=== PATIENT | female | born 1980 | race Two or more races ===

== ENCOUNTER 2017-06-07 07:32 | Emergency (ER) | payer OTHER ==
[2017-06-07 07:55] VITALS: BMI 17.7
[2017-06-07 08:16] LABS: URINE APPEARANCE CLEAR; URINE BILIRUBIN NEGATIVE (NEGATIVE); URINE BLOOD 3+ (NEGATIVE); URINE COLOR STRAW; URINE GLUCOSE (UA) NEGATIVE (NEGATIVE); URINE KETONE NEGATIVE (NEGATIVE); URINE NITRITE NEGATIVE (NEGATIVE); URINE PROTEIN NEGATIVE (NEGATIVE); URINE UROBILINOGEN NEGATIVE mg/dL (0.2-1.0)
--- NOTE | 2017-06-07 08:17 | PDOC ---
History of Present Illness - General Chief Complaint: Urinary Problem Stated Complaint: PIANFUL URINATION Time Seen by Provider: 06/07/17 08:03 History Source: Patient Exam Limitations: No Limitations - History of Present Illness Initial Comments: This is a 37 YOF with h/o UTI 4 years ago who presents with burning on urination and lower abdominal pain for the past two days. She additionally notes small amount of blood in the urine for the past day. Her pain is 7/10 maximum and is non-radiating (no leg/back/flank/upper abdomen/chest/shoulder pain). She had the same symptoms four years ago and was diagnosed with UTI at that time, but otherwise has never had a UTI that she is aware of. She denies any fever, chills, nausea, vomiting, vaginal bleeding or discharge, headache, dizziness, chest pain, SOB, or other symptoms. She has been taking Azo for her symptoms but no other medications. Her LMP was on 05/23/17 and she denies any chance of being now. Her last pelvic exam and PAP smear was three years ago and she has a PCP with whom she has plans to follow up with for a repeat pelvic exam and PAP. She has no medication allergies. Past History - Past Medical History Allergies/Adverse Reactions: Allergies Allergy/AdvReac Type Severity Reaction Status Date / Time No Known Allergies Allergy Verified 06/07/17 07:51 Home Medications: Ambulatory Orders Cephalexin [Keflex] 500 mg PO BID #10 capsule 06/07/17 COPD: No Other medical history: DENIES. - Suicide/Smoking/Psychosocial Hx Smoking History: Never smoked Review of Systems - Review of Systems Constitutional: No: Chills, Fever, Unexplained wgt Loss HEENTM: No: Nose Congestion, Throat Pain Respiratory: No: Cough, Shortness of Breath Cardiac (ROS): No: Chest Pain, Palpitations ABD/GI: Yes: Other (lower abdominal pain). No: Constipated, Diarrhea, Nausea, Vomiting : Yes: Burning, Dysuria Musculoskeletal: No: Back Pain, Neck Pain Integumentary: No: Bruising, Rash Neurological: No: Headache, Numbness, Tingling, Weakness, Dizziness Endocrine: No: Unexplained Weight Gain, Unexplained Weight Loss *Physical Exam - Vital Signs Last Vital Signs Temp Pulse Resp BP Pulse Ox 98.2 F 70 19 122/64 100 06/07/17 07:51 06/07/17 07:51 06/07/17 07:51 06/07/17 07:51 06/07/17 07:51 - Physical Exam General Appearance: Yes: Nourished, Appropriately Dressed, Other (well appearing [place]-speaking female accompanied by her adolescent son, answers appropriately, sitting comfortably on hospital bed). No: Apparent Distress HEENT: positive: EOMI, Normal Voice, Hearing Grossly Normal. negative: Scleral Icterus (R), Scleral Icterus (L), Nasal Congestion Neck: positive: Trachea midline, Supple. negative: Tender, Rigid Respiratory/Chest: positive: Lungs Clear, Normal Breath Sounds. negative: Chest Tender, Respiratory Distress, Crackles, Rhonchi, Stridor, Wheezing Cardiovascular: positive: Regular Rhythm, Regular Rate. negative: Murmur Gastrointestinal/Abdominal: positive: Normal Bowel Sounds, Tender (mild ttp suprapubic region), Soft. negative: Organomegaly, Pulsatile Mass, Guarding Musculoskeletal: positive: Normal Inspection. negative: CVA Tenderness, Decreased Range of Motion, Vertebral Tenderness Extremity: positive: Normal Capillary Refill, Normal Inspection, Normal Range of Motion. negative: Tender, Cyanosis Integumentary: positive: Normal Color, Dry, Warm. 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 On exam VS wnl and the patient is comfortable but has mild suprapubic ttp, no CVA tenderness. DDX IBNLT UTI, urethritis, pyelonephritis, endometriosis, ovarian cyst, vaginitis, interstitial cystitis, etc. High likelihood of simple UTI as patient has no CVA ttp, no severe abdominal pain, no vaginal itching/discharge, h/o cysts, etc. Ordered is UA with cx. 06/07/17 09:35 UA results with negative nitrites, leukocyte esterase pending, but +blood. Mirco is run and results with WBCs and rare bacteria. Will treat with dose of Keflex here in the ED and Rx for Keflex course at home. Return precautions are discussed. *DC/Admit/Observation/Transfer Diagnosis at time of Disposition: UTI (urinary tract infection) Qualifiers: Urinary tract infection type: site unspecified Hematuria presence: with hematuria Qualified Code(s): N39.0 - Urinary tract infection, site not specified - Discharge Dispostion Disposition: HOME Condition at time of disposition: Stable Admit: No - Prescriptions Prescriptions: Cephalexin [Keflex] 500 mg PO BID #10 capsule - Referrals - Patient Instructions Printed Discharge Instructions: DI for Urinary Tract Infection (UTI) Additional Instructions: Null visto en la angelique emergencia por dolor de abdomen y sensacion de quemar cuando orina. Creemos que tiene wale infeccion de la orina y mandemos wale receta de antibioticos a grady farmacia. Por favor tisha todos los antibioticos siguiendo las direcciones en el paquete. Tisha Azo po solo un diana mas porque esta medicamente solamente funciona por dos gomes. Haz wale thuy con grady doctor primario , o por favor regresa a la angelique emergencia si tiene sintomas nuevas o peoras rama fiebre, dolor de espalda, o dolor que no puede controlar con Tylenol. Print Language: ARMENIAN - Post Discharge Activity
--- NOTE | 2017-06-07 08:19 | PDOC ---
Attending Attestation - HPI HPI: 06/07/17 09:26 The patient is a 37 year old female with a significant PMH of past UTI (2012) who presents to the emergency department with dysuria and suprapubic abdominal pain beginning approximately 2 days ago. The patient also reports hematuria beginning this morning. The patient denies taking antibiotics in the past for her UTI. The patient denies chest pain, shortness of breath, headache and dizziness. Denies fever, chills, nausea, vomit, diarrhea and constipation. Denies urinary frequency or urgency. Allergies: NKA <Freddie Blue - Last Filed: 06/07/17 09:26> - Resident Resident Name: Lisa Smyth - ED Attending Attestation I have performed the following: I have examined & evaluated the patient, The case was reviewed & discussed with the resident, I agree w/resident's findings & plan, Exceptions are as noted - Physicial Exam PE: GENERAL: Awake, alert, and fully oriented, in no acute distress HEAD: No signs of trauma EYES: PERRLA, EOMI, sclera anicteric, conjunctiva clear ENT: Auricles normal inspection, hearing grossly normal, nares patent, oropharynx clear without exudates. Moist mucosa NECK: Normal ROM, supple, no lymphadenopathy, JVD, or masses LUNGS: Breath sounds equal, clear to auscultation bilaterally. No wheezes, and no crackles HEART: Regular rate and rhythm, normal S1 and S2, no murmurs, rubs or gallops ABDOMEN: Soft, +suprapubic tenderness, normoactive bowel sounds. No guarding, no rebound. No masses. No CVAT. EXTREMITIES: Normal range of motion, no edema. No clubbing or cyanosis. No cords, erythema, or tenderness NEUROLOGICAL: Cranial nerves II through XII grossly intact. Normal speech, normal gait SKIN: Warm, Dry, normal turgor, no rashes or lesions noted. - Medical Decision Making No signs of pyelo on exam. Symptoms consistent with UTI, will treat with PO abx. <Marian Gonsalves - Last Filed: 06/07/17 12:17>
[2017-06-07 09:02] LABS: URINE BACTERIA RARE /hpf (NONE SEEN); URINE RBC <1 /hpf (0-3); URINE WBC 17 /hpf (3-5)
[2017-06-07] MEDS ORDERED: CEPHALEXIN MONOHYDRATE 500 MG CAPSULE (UD) PO ONE (09:23)
[2017-06-07] MEDS ORDERED: CEPHALEXIN MONOHYDRATE 250 MG CAPSULE (FP) ONE (09:28)
[2017-06-07 09:40] VITALS: BP 125/68; PULSE 74; TEMP 98
[2017-06-07 12:57] LABS: URINE LEUK ESTERASE 2+ (NEGATIVE)
== END 2017-06-07 09:40 | disposition home or self-care (01) ==
LOC: JER 07:32
DX: N39.0 Urinary tract infection, site not specified (principal)
CPT/HCPCS: 81003; 81015; 84703; 87086; 99282-25

== ENCOUNTER 2017-11-22 19:46 | Emergency (ER) | payer SELFPAY ==
--- NOTE | 2017-11-22 20:00 | PDOC ---
Rapid Medical Evaluation Time Seen by Provider: 11/22/17 19:56 Medical Evaluation: Allergies Allergy/AdvReac Type Severity Reaction Status Date / Time No Known Allergies Allergy Verified 06/07/17 07:51 11/22/17 19:56 I have performed a brief in-person evaluation of this patient. The patient presents with a chief complaint of: Occipital headache x1 week Pertinent physical exam findings: EOMI. Gait steady. No meningismus noted. VSS. AF I have ordered the following: urine The patient will proceed to the ED for further evaluation. Discharge Disposition - Diagnosis Headache - Referrals - Patient Instructions - Post Discharge Activity
[2017-11-22 20:02] VITALS: BP 149/71; PULSE 74; TEMP 98.4; BMI 22.2
--- NOTE | 2017-11-22 20:31 | PDOC ---
History of Present Illness - General Chief Complaint: Headache Stated Complaint: HEAD/NECK PROBLEM Time Seen by Provider: 11/22/17 19:56 History Source: Patient - History of Present Illness Timing/Duration: reports: other Past History - Past Medical History Allergies/Adverse Reactions: Allergies Allergy/AdvReac Type Severity Reaction Status Date / Time No Known Allergies Allergy Verified 11/22/17 20:01 Home Medications: Ambulatory Orders NK [No Known Home Medication] 11/22/17 COPD: No - Suicide/Smoking/Psychosocial Hx Smoking History: Never smoked Have you smoked in the past 12 months: No Information on smoking cessation initiated: No Hx Alcohol Use: No Drug/Substance Use Hx: No Substance Use Type: None Review of Systems - Review of Systems Constitutional: No: Chills, Fever HEENTM: No: Blurred Vision, Ear Pain, Throat Pain Neurological: Yes: Headache. No: Dizziness *Physical Exam - Vital Signs Last Vital Signs Temp Pulse Resp BP Pulse Ox 98.4 F 74 17 149/71 100 11/22/17 19:59 11/22/17 19:59 11/22/17 19:59 11/22/17 19:59 11/22/17 19:59 - Physical Exam General Appearance: Yes: Appropriately Dressed. No: Apparent Distress HEENT: positive: Normal Voice. negative: Scleral Icterus (R), Scleral Icterus ( L) Neck: positive: Supple. 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 Here for evaluation for unclear reasons as no pain currently. Denies dizziness, visual changes, nausea, vomiting, URI symptoms, fever or chills. Has had infrequent headaches in the past per pt but nothing truly chronic in nature. Patient well- appearing and stable with unremarkable exam. No red flags at this time. Urine negative. DC with PMD follow-up for further evaluation if headache persists *DC/Admit/Observation/Transfer Diagnosis at time of Disposition: Headache Qualifiers: Headache type: unspecified Headache chronicity pattern: acute headache Intractability: not intractable Qualified Code(s): R51 - Headache - Discharge Dispostion Disposition: HOME Condition at time of disposition: Good - Referrals Referrals: Melly Claros MD [Primary Care Provider] - - Patient Instructions Printed Discharge Instructions: DI for Headache Additional Instructions: The cause of your headache is unclear at this time, but you will need further evaluation by her PMD if headache persists. In the meantime take Tylenol or Motrin as needed Print Language: FILIPINO - Post Discharge Activity
== END 2017-11-22 20:40 | disposition home or self-care (01) ==
LOC: JERFT 19:46
DX: R51 Headache (principal)
CPT/HCPCS: 84703; 99281-25